=== PATIENT | male | born 1940 | race Caucasian/White ===

== ENCOUNTER 2017-01-13 13:12 | Inpatient (IN) ==
[2017-01-13] MEDS ORDERED: *HR* HYDROcodone/Acet 5/325 mg TABLET PO PRN (13:34)
--- NOTE | 2017-01-13 13:38 | Internal Med History&Physical ---
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 Schultz is a 76 year old male who had both knees replaced and is here for his rehab . Denies nay complains No ches tpain no SOB palpitation fever or chill has some nausea since he has been taking pain pills Has hx of Incontinence of urine due to prostate surgery . no loss of weight no headache or any other complains overall feels fine pain is well controlled Internal Medicine - H&P: Meds Cholecalciferol (Vitamin D3) [Vitamin D] 2,000 unit PO DAILY 01/13/17 [History] Felodipine [Felodipine ER] 5 mg PO DAILY 01/13/17 [History] Losartan [Cozaar] 100 mg PO DAILY 01/13/17 [History] Tolterodine Tartrate [Detrol] 2 [place] 8[address]01/13/17 [History] Tolterodine Tartrate [Detrol] 4 mg PO 209901/13/17 [History] 3 Allergy/AdvReac Type Severity Reaction Status Date / Time lisinopril AdvReac Cough Verified 01/13/17 13:21 All Systems PM: A 10-system review of systems was performed and is negative for pertinent findings except as documented above in the HPI. - Constitutional Constitutional: no chills, no fatigue, no falls, no lethargy, no weakness - EENT Eyes: no diplopia, no discharge, no floaters, no loss of vision, no pain, no photophobia Ears: no ear pain Nose, mouth and throat: no bleeding gums, no dental pain, no dry mouth, no mouth pain, no nasal congestion, no nasal discharge, no sinus pain, no sinus pressure - Breasts Breasts: no nipple discharge - Cardiovascular Cardiovascular ROS IM: no chest pain, no claudication, no diaphoresis, no dyspnea, no dyspnea on exertion, no irregular heart rhythm, no lightheadedness, no orthopnea, no palpitations, no paroxysmal nocturnal dyspnea, no syncope - Respiratory Respiratory: no dyspnea, no dyspnea on exertion, no wheezing, no snoring, no chest congestion, no change in phlegm color, no pain with cough - Gastrointestinal Gastrointestinal: nausea, no abdominal pain, no bloating, no coffee ground emesis, no constipation, no cramping, no diarrhea, no dyspepsia, no dysphagia, no heartburn, no loose stools, no melena - Genitourinary Genitourinary ROS male: urinary frequency, urinary hesitancy, urinary incontinence, urinary urgency, no hematuria, no penile discharge - Musculoskeletal Musculoskeletal ROS IM: atrophy, back pain, joint swelling, muscle cramps, numbness, stiffness - Integumentary Integumentary IM: erythema, rash, jaundice - Neurological Neurological ROS: abnormal speech, behavioral changes, convulsions, disequilibrium, dizziness, memory loss, numbness, tremor(s), weakness - Psychiatric Psychiatric: homicidal ideation, suicidal ideation - Constitutional General appearance: Present: A&O X 3, pleasant, obese. Absent: severe distress , loss of weight - Head Head exam: Present: atraumatic - Eye Eye exam: Present: EOMI, PERRL. Absent: scleral icterus, sclera anicteric - ENT ENT exam: Present: mucous membranes moist - Neck Neck exam general surgery: Present: supple. Absent: tenderness, nuchal rigidity - Respiratory Respiratory exam: Present: CTAB. Absent: chest wall tenderness, decreased breath sounds, respiratory distress, rhonchi, stridor, wheezes - Cardiovascular Cardiovascular exam: Present: RRR. Absent: distant heart sounds, gallop, irregular rhythm, JVD, rubs - GI/Abdominal GI/Abdominal exam: Present: hepatomegaly, normal bowel sounds, soft. Absent: distended, guarding, rebound Additional comments: liver feels enlarged beow costal margins Span seems normal however no pain - Rectal Rectal exam: Present: deferred - Extremities Exam Extremities exam: Absent: mottling, pedal edema, tenderness - Incison Incision: Present: clean and dry. Absent: draining, red, swollen, inflamed - Neurological Exam Neurological exam: Present: CN II-XII intact, oriented X3, no focal deficits, strengths equal and symetr throughout. Absent: facial droop, speech deficit - Psychiatric Psychiatric exam: Present: normal affect, normal mood. Absent: anxious, depressed, homicidal ideation
[2017-01-13] MEDS: *HR* HYDROcodone/Acet 5/325 mg TABLET PO PRN ×2 (16:20→20:55)
[2017-01-13] MEDS: Aspirin 325 MG TABLET PO SCH (20:55)
[2017-01-13] MEDS ORDERED: Tolterodine LA (24 HR) 4 MG CAP.ER.24H PO SCH (21:00)
[2017-01-14] MEDS: *HR* Enoxaparin 40 MG/0.4 ML SYRINGE SQ SCH (05:33)
[2017-01-14] MEDS: *HR* HYDROcodone/Acet 5/325 mg TABLET PO PRN ×3 (05:33→22:31)
[2017-01-14 05:52] LABS: Basophils # 0.1 K/mcL (0.0-0.2); Basophils % 0.6 %; Eosinophils # 0.4 K/mcL (0.0-0.6); Eosinophils % 4.4 %; Hematocrit 30.8 % (37.5-50.1); Hemoglobin 10.1 g/dL (12.9-16.9); Immature Granulocytes % 0.3 % (0-4); Lymphocytes # 1.4 K/mcL (0.6-4.6); Mean Corpuscular HGB Conc 32.8 g/dL (31.6-35.5); Mean Corpuscular Hemoglobin 29.6 pg (28.0-33.3); Mean Corpuscular Volume 90.3 fL (83.0-100.0); Mean Platelet Volume 10.2 fL (9.4-12.4); Monocytes # 1.1 K/mcL (0.0-1.3); Monocytes % 13.8 %; Platelet Count 233 K/mcL (140-400); Red Blood Count 3.41 M/mcL (4.19-5.50); Red Cell Distribution Width 13.1 % (11.5-14.5); Segmented Neutrophils % 62.9 %
[2017-01-14 05:55] LABS: INR 1.1; Prothrombin Time 11.8 Seconds (9.4-12.1)
[2017-01-14 05:58] LABS: Activated Partial Thrombo Time 27.5 Seconds (26.0-36.0)
[2017-01-14 06:06] LABS: BUN/Creatinine Ratio 22 (6-26); Blood Urea Nitrogen 20 mg/dL (8-26); Calcium 9.2 mg/dL (8.6-10.8); Carbon Dioxide 30 mEq/L (19-29); Chloride 103 mEq/L (98-109); Glucose 102 mg/dL (70-99); Osmolality,Calculated 291 (280-300); Potassium 4.3 mEq/L (3.5-4.5); Sodium 139 mEq/L (136-145); eGFR For African Americans > 60 (> 60); eGFR For Non-African Americans > 60 (> 60)
--- NOTE | 2017-01-14 07:15 | Internal Med Progress Note ---
Date of Encounter: 01/14/17 Time of Encounter: 07:12 - Assessment and plan (1) Total knee replacement status Current Visit: Yes Status: Acute Assessment and plan: stable Pain is well controlled Qualifiers: Laterality: bilateral Qualified Code(s): Z96.653 - Presence of artificial knee joint, bilateral (2) HTN (hypertension) Current Visit: Yes Status: Chronic Assessment and plan: Stable continue present meds Qualifiers: Hypertension type: essential hypertension Qualified Code(s): I10 - Essential (primary) hypertension (3) Urinary incontinence Current Visit: Yes Status: Chronic Assessment and plan: s/p Ca bladder and Prostate conservative treatment Qualifiers: 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 Absent: severe distress , loss of weight - Head Head exam: Present: normal inspection - Eye Eye exam: Present: EOMI, PERRL. Absent: scleral icterus, conjuntiva pink Pupils: Present: normal accommodation, PERRL - Neck Neck exam general surgery: Present: supple. Absent: tenderness, nuchal rigidity - Respiratory Respiratory exam: Present: CTAB. Absent: accessory muscle use, chest wall tenderness, respiratory distress, rhonchi, stridor - Cardiovascular Cardiovascular exam: Present: RRR. Absent: diastolic murmur, gallop, irregular rhythm, JVD, systolic murmur - GI/Abdominal GI/Abdominal exam: Present: normal bowel sounds, rigid, soft. Absent: distended , guarding, pulsatile mass, rebound, splenomegaly, tenderness - Neurological Exam Neurological exam: Present: CN II-XII intact, oriented X3, no focal deficits, strengths equal and symetr throughout. Absent: facial droop, speech deficit Additional comments: within normal limits Internal Medicine: Result - Labs CBC & Chem 7: 01/14/17 05:20 01/14/17 05:20 Labs: Short CBC 01/14/17 Range/Units 05:20 WBC 7.9 (4.3-11.1) K/mcL Hgb 10.1 L (12.9-16.9) g/dL Hct 30.8 L (37.5-50.1) % Plt Count 233 (140-400) K/mcL Neutrophils # 5.0 (1.6-8.9) K/mcL BMP 01/14/17 05:20 Sodium 139 Potassium 4.3 Chloride 103 Carbon Dioxide 30 H BUN 20 Creatinine 0.91 Glucose 102 H Calcium 9.2 - ABG Interpretation ABG results: PT/INR, D-dimer PT 11.8 Seconds (9.4-12.1) 01/14/17 05:20 - VTE Documentation of Mechanical Device: Graduated compression elastic hosiery Consult Discharge Plan - Plan Referrals: Linda Colvin MD [Primary Care Provider] -
[2017-01-14] MEDS: TOLTERODINE 2 MG PO SCH (08:53)
[2017-01-14] MEDS: Aspirin 325 MG TABLET PO SCH ×2 (08:53→22:31)
[2017-01-14] MEDS: Cholecalciferol (D-3) 1,000 UNIT TABLET PO SCH (08:53)
[2017-01-14] MEDS: (Felodipine [Felodipine Er] 5 MG) PO SCH (08:53)
[2017-01-14] MEDS ORDERED: Tolterodine LA (24 HR) 2 MG CAP.ER.24H PO SCH (09:00)
[2017-01-14] MEDS ORDERED: NON-FORMULARY MEDICATION 1 EACH EACH PO SCH (21:00)
[2017-01-14] MEDS: TOLTERODINE 4 MG PO SCH (22:34)
[2017-01-15] MEDS: *HR* HYDROcodone/Acet 5/325 mg TABLET PO PRN ×5 (04:33→20:38)
[2017-01-15] MEDS: *HR* Enoxaparin 40 MG/0.4 ML SYRINGE SQ SCH (04:34)
[2017-01-15] MEDS: Cholecalciferol (D-3) 1,000 UNIT TABLET PO SCH (07:55)
[2017-01-15] MEDS: Aspirin 325 MG TABLET PO SCH ×2 (07:55→19:06)
[2017-01-15] MEDS: TOLTERODINE 2 MG PO SCH (07:56)
[2017-01-15] MEDS: (Felodipine [Felodipine Er] 5 MG) PO SCH (07:56)
--- NOTE | 2017-01-15 07:58 | Internal Med Progress Note ---
Date of Encounter: 01/15/17 Time of Encounter: 07:56 - Assessment and plan (1) Total knee replacement status Current Visit: Yes Status: Acute Assessment and plan: pain stable no new complains doing fine Qualifiers: Laterality: bilateral Qualified Code(s): Z96.653 - Presence of artificial knee joint, bilateral (2) HTN (hypertension) Current Visit: Yes Status: Chronic Assessment and plan: stable continue present medication Qualifiers: Hypertension type: essential hypertension Qualified Code(s): I10 - Essential (primary) hypertension (3) Urinary incontinence Current Visit: Yes Status: Chronic Assessment and plan: stable no new changes Qualifiers: 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 B12 levels ordered Qualifiers: Anemia type: iron deficiency Iron deficiency anemia type: unspecified iron deficiency Qualified Code(s): D50.9 - Iron deficiency anemia, unspecified - Subjective Interval history: No new complains doing fine . Noticed bruises both sides of his legs noticed yerstday Some pain otherwise doing fine no SOB slept well . - Constitutional Vitals: Temp Pulse Resp BP Pulse Ox 98.0 F 99 16 142/73 96 01/14/17 19:24 01/15/17 04:32 01/14/17 19:24 01/15/17 04:32 01/14/17 19:24 General appearance: Present: A&O X 3, pleasant, obese. Absent: severe distress , loss of weight - Head Head exam: Present: normal inspection - Eye Eye exam: Present: EOMI, PERRL Pupils: Present: PERRL - Neck Neck exam general surgery: Present: supple. Absent: tenderness - Respiratory Respiratory exam: Present: CTAB. Absent: respiratory distress, rhonchi, stridor , wheezes, tachypnea - Cardiovascular Cardiovascular exam: Present: RRR. Absent: diastolic murmur, irregular rhythm, JVD, systolic murmur - GI/Abdominal GI/Abdominal exam: Present: normal bowel sounds, soft. Absent: distended, guarding, rebound, rigid - Incison Incision: Present: clean and dry Comments: no discharge - Neurological Exam Neurological exam: Present: alert. Absent: no focal deficits, facial droop, speech deficit Additional comments: neuro exam within normal limits - Skin Additional comments: bruises both legs same palce seems like due to device used during surgery Internal Medicine: Result - Labs CBC & Chem 7: 01/14/17 05:20 01/14/17 05:20 - ABG Interpretation ABG results: PT/INR, D-dimer PT 11.8 Seconds (9.4-12.1) 01/14/17 05:20 - VTE Documentation of Mechanical Device: Graduated compression elastic hosiery Consult Discharge Plan - Plan Referrals: Linda Colvin MD [Primary Care Provider] -
[2017-01-15] MEDS: TOLTERODINE 4 MG PO SCH (19:07)
[2017-01-16] MEDS: *HR* HYDROcodone/Acet 5/325 mg TABLET PO PRN ×5 (01:29→18:23)
[2017-01-16] MEDS: *HR* Enoxaparin 40 MG/0.4 ML SYRINGE SQ SCH (05:46)
[2017-01-16 06:35] LABS: Basophils # 0.1 K/mcL (0.0-0.2); Basophils % 0.7 %; Eosinophils # 0.6 K/mcL (0.0-0.6); Eosinophils % 6.1 %; Hemoglobin 10.6 g/dL (12.9-16.9); Immature Granulocytes % 0.7 % (0-4); Lymphocytes # 1.9 K/mcL (0.6-4.6); Lymphocytes % 20.6 %; Mean Corpuscular HGB Conc 33.1 g/dL (31.6-35.5); Mean Corpuscular Hemoglobin 29.9 pg (28.0-33.3); Mean Corpuscular Volume 90.4 fL (83.0-100.0); Mean Platelet Volume 9.3 fL (9.4-12.4); Monocytes # 1.2 K/mcL (0.0-1.3); Monocytes % 12.8 %; Neutrophils # 5.3 K/mcL (1.6-8.9); Nucleated Red Blood Cells 0.2 /100 WBC (0); Platelet Count 308 K/mcL (140-400); Red Blood Count 3.54 M/mcL (4.19-5.50); Red Cell Distribution Width 13.2 % (11.5-14.5); Segmented Neutrophils % 59.1 %
[2017-01-16 06:57] LABS: BUN/Creatinine Ratio 19 (6-26); Blood Urea Nitrogen 16 mg/dL (8-26); Calcium 9.1 mg/dL (8.6-10.8); Carbon Dioxide 28 mEq/L (19-29); Chloride 102 mEq/L (98-109); Glucose 119 mg/dL (70-99); Osmolality,Calculated 290 (280-300); Potassium 4.2 mEq/L (3.5-4.5); Sodium 139 mEq/L (136-145); eGFR For African Americans > 60 (> 60); eGFR For Non-African Americans > 60 (> 60)
--- NOTE | 2017-01-16 07:52 | Internal Med Progress Note ---
Date of Encounter: 01/16/17 Time of Encounter: 07:50 - Assessment and plan (1) Total knee replacement status Current Visit: Yes Status: Acute Assessment and plan: stable no new change doing well incision stable and healing well Qualifiers: Laterality: bilateral Qualified Code(s): Z96.653 - Presence of artificial knee joint, bilateral (2) HTN (hypertension) Current Visit: Yes Status: Chronic Assessment and plan: middy high today will continue to monitor Qualifiers: Hypertension type: essential hypertension Qualified Code(s): I10 - Essential (primary) hypertension (3) Urinary incontinence Current Visit: Yes Status: Chronic Assessment and plan: no new change Qualifiers: 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 Qualified Code(s): N39.46 - Mixed incontinence (4) Anemia Current Visit: Yes Status: Acute Assessment and plan: stable on supplement Qualifiers: Anemia type: iron deficiency Iron deficiency anemia type: unspecified iron deficiency Qualified Code(s): D50.9 - Iron deficiency anemia, unspecified - Subjective Interval history: Doing well no new complains actively invovled in rehab and is doing quite well medically - Constitutional Vitals: Temp Pulse Resp BP Pulse Ox 98.0 F 78 16 150/69 91 01/16/17 07:07 01/16/17 07:07 01/16/17 07:07 01/16/17 07:07 01/16/17 07:07 General appearance: Present: A&O X 3, pleasant, obese. Absent: severe distress , loss of weight - Head Head exam: Present: normal inspection - Eye Eye exam: Present: EOMI, PERRL Pupils: Present: PERRL - Neck Neck exam general surgery: Present: supple. Absent: tenderness, nuchal rigidity - Respiratory Respiratory exam: Present: CTAB. Absent: rales, respiratory distress, rhonchi, stridor, wheezes, tachypnea - Cardiovascular Cardiovascular exam: Present: RRR, +S1, +S2. Absent: irregular rhythm, JVD - GI/Abdominal GI/Abdominal exam: Present: normal bowel sounds, soft. Absent: guarding, hepatomegaly, mass, rigid, splenomegaly, tenderness - Extremities Exam Extremities exam: Absent: pedal edema, tenderness - Incison Incision: Present: clean and dry, intact. Absent: red, swollen, indurated - Neurological Exam Neurological exam: Present: alert, oriented X3, no focal deficits, strengths equal and symetr throughout. Absent: facial droop, speech deficit Internal Medicine: Result - Labs CBC & Chem 7: 01/16/17 06:28 01/16/17 06:28 Labs: Short CBC 01/16/17 Range/Units 06:28 WBC 9.0 (4.3-11.1) K/mcL Hgb 10.6 L (12.9-16.9) g/dL Hct 32.0 L (37.5-50.1) % Plt Count 308 (140-400) K/mcL Neutrophils # 5.3 (1.6-8.9) K/mcL BMP 01/16/17 06:28 Sodium 139 Potassium 4.2 Chloride 102 Carbon Dioxide 28 BUN 16 Creatinine 0.83 Glucose 119 H Calcium 9.1 - ABG Interpretation ABG results: PT/INR, D-dimer PT 11.8 Seconds (9.4-12.1) 01/14/17 05:20 - VTE Documentation of Mechanical Device: Graduated compression elastic hosiery Consult Discharge Plan - Plan Referrals: Linda Colvin MD [Primary Care Provider] -
[2017-01-16] MEDS: Cholecalciferol (D-3) 1,000 UNIT TABLET PO SCH (08:51)
[2017-01-16] MEDS: Aspirin 325 MG TABLET PO SCH ×2 (08:51→20:09)
[2017-01-16] MEDS: TOLTERODINE 2 MG PO SCH (08:57)
[2017-01-16] MEDS: (Felodipine [Felodipine Er] 5 MG) PO SCH (08:58)
[2017-01-16 12:30] LABS: % Iron Saturation 22 % (20-55); Iron 59 mcg/dL (65-175); Transferrin 189 mg/dL (174-364)
[2017-01-16] MEDS: TOLTERODINE 4 MG PO SCH (20:11)
[2017-01-17] MEDS: *HR* HYDROcodone/Acet 5/325 mg TABLET PO PRN ×4 (00:25→15:15)
[2017-01-17] MEDS: *HR* Enoxaparin 40 MG/0.4 ML SYRINGE SQ SCH (05:26)
[2017-01-17 07:27] VITALS: BP 147/84
[2017-01-17] MEDS: Cholecalciferol (D-3) 1,000 UNIT TABLET PO SCH (09:53)
[2017-01-17] MEDS: Aspirin 325 MG TABLET PO SCH (09:53)
[2017-01-17] MEDS: (Felodipine [Felodipine Er] 5 MG) PO SCH (09:54)
[2017-01-17] MEDS: TOLTERODINE 2 MG PO SCH (09:58)
--- NOTE | 2017-01-17 13:16 | Discharge Summary ---
Date of Encounter: 01/17/17 Time of Encounter: 13:00 - Discharge Diagnosis (1) Total knee replacement status Priority: Primary Status: Acute Qualifiers: Laterality: bilateral Qualified Code(s): Z96.653 - Presence of artificial knee joint, bilateral - Discharge Medications Home Medications: Cholecalciferol (Vitamin D3) [Vitamin D] 2,000 unit PO DAILY 01/13/17 [History] Felodipine [Felodipine ER] 5 mg PO DAILY 01/13/17 [History] Losartan [Cozaar] 100 mg PO DAILY 01/13/17 [History] Tolterodine Tartrate [Detrol] 2 mg PO 0900 01/13/17 [History] Tolterodine Tartrate [Detrol] 4 mg PO 2100 01/13/17 [History] Allergies/Adverse Reactions: 3 Allergy/AdvReac Type Severity Reaction Status Date / Time lisinopril AdvReac Cough Verified 01/13/17 13:21 Date of admission: 01/13/17 13:12 Primary care physician: Linda Colvin, Consults: 01/13/17 13:36 Consult to Occupational Therapy [CONS] Routine Comment: Evaluate, develop and implement POC Reason for Consult: bilat knee replacement Consult to Physical Therapy [CONS] Routine Comment: Evaluate, develop and implement POC Reason for Consult: bilateral knee replacement Consult to Recreational Therapy [CONS] Routine Comment: Evaluate, develop and implement POC Discharging clinician: García Inman Anticipated date of discharge: 01/17/17 - Patient Status Disposition: Home, Self-Care Condition: Good Overall status at discharge: patient is progressing back to baseline - Discharge Instructions Follow Up With: Linda Colvin MD [Primary Care Provider] - - Diet and Activity Activity: ambulate only with your walker Diet: advance to your usual diet Hospital course: Mr. Huerta is a 76 year old male - Time Spent with Patient Total time spent providing and/or coordinating discharge services: Less than 30 minutes - Constitutional Vitals: Temp Pulse Resp BP Pulse Ox 97.8 F 89 18 147/84 94 01/17/17 07:26 01/17/17 07:26 01/17/17 07:26 01/17/17 07:26 01/17/17 07:26 General appearance: Present: A&O X 3, pleasant, obese. Absent: severe distress , loss of weight - Head Head exam: Present: atraumatic, normocephalic - Neck Neck exam general surgery: Present: supple, trachea midline. Absent: lymphadenopathy - Respiratory Respiratory exam: Present: CTAB. Absent: accessory muscle use, rales, rhonchi, wheezes - Cardiovascular Cardiovascular exam: Present: RRR, +S1, +S2. Absent: diastolic murmur, gallop, rubs, systolic murmur - VTE Documentation of Mechanical Device: Graduated compression elastic hosiery
--- NOTE | 2017-01-17 13:21 | Discharge Summary ---
Date of Encounter: 01/17/17 Time of Encounter: 13:00 - Discharge Diagnosis (1) Total knee replacement status Priority: Primary Status: Acute Qualifiers: Laterality: bilateral Qualified Code(s): Z96.653 - Presence of artificial knee joint, bilateral - Discharge Medications Home Medications: Cholecalciferol (Vitamin D3) [Vitamin D] 2,000 unit PO DAILY 01/13/17 [History] Felodipine [Felodipine ER] 5 mg PO DAILY 01/13/17 [History] Losartan [Cozaar] 100 mg PO DAILY 01/13/17 [History] Tolterodine Tartrate [Detrol] 2 mg PO 0900 01/13/17 [History] Tolterodine Tartrate [Detrol] 4 mg PO 2100 01/13/17 [History] Allergies/Adverse Reactions: 3 Allergy/AdvReac Type Severity Reaction Status Date / Time lisinopril AdvReac Cough Verified 01/13/17 13:21 Date of admission: 01/13/17 13:12 Primary care physician: Linda oClvin, Consults: 01/13/17 13:36 Consult to Occupational Therapy [CONS] Routine Comment: Evaluate, develop and implement POC Reason for Consult: bilat knee replacement Consult to Physical Therapy [CONS] Routine Comment: Evaluate, develop and implement POC Reason for Consult: bilateral knee replacement Consult to Recreational Therapy [CONS] Routine Comment: Evaluate, develop and implement POC Discharging clinician: García Inman Anticipated date of discharge: 01/17/17 - Patient Status Disposition: Home, Self-Care Condition: Good Functional capacity at discharge: uses cane/walker Overall status at discharge: patient is progressing back to baseline - Discharge Instructions Follow Up With: Linda Colvin MD [Primary Care Provider] - - Diet and Activity Activity: ambulate only with your walker Diet: advance to your usual diet Interval History: Patient was a self started from the first day here. His improved rapidly and doing well will assume now outpatient care. Hospital course: Mr. Huerta is a 76 year old male Who presented after status post total knee replacement bilaterally. Has done well. We will continue his therapy with outpatient - Time Spent with Patient Total time spent providing and/or coordinating discharge services: Less than 30 minutes - Constitutional Vitals: Temp Pulse Resp BP Pulse Ox 97.8 F 89 18 147/84 94 01/17/17 07:26 01/17/17 07:26 01/17/17 07:26 01/17/17 07:26 01/17/17 07:26 General appearance: Present: A&O X 3, pleasant, obese. Absent: severe distress , loss of weight - Head Head exam: Present: atraumatic, normocephalic - Neck Neck exam general surgery: Present: supple, trachea midline. Absent: lymphadenopathy - Respiratory Respiratory exam: Present: CTAB. Absent: accessory muscle use, rales, rhonchi, wheezes - Cardiovascular Cardiovascular exam: Present: RRR, +S1, +S2. Absent: diastolic murmur, gallop, rubs, systolic murmur - VTE Documentation of Mechanical Device: Graduated compression elastic hosiery
== END 2017-01-17 15:16 | disposition home or self-care (01) | DRG 561 ==
LOC: INPGRE 13:12
PROVIDERS: ADMIT Internal Medicine; ATTEND Internal Medicine